=== PATIENT | male | born 1995 | race Caucasian/White ===

== ENCOUNTER 2017-05-06 12:30 | Inpatient (IN) | payer BC ==
[2017-05-06] MEDS ORDERED: LEVSIN/MAALOX/LIDOC VISC PO ONE (12:57)
[2017-05-06] MEDS ORDERED: NORCO 10/325 TAB PO PRN (12:57)
--- NOTE | 2017-05-06 13:00 | DR.H&P ---
H&P - History & Physical for Day of: H&P Date: 05/06/17 - Chief Complaint Chief Complaint: vomiting blood, upper abdominal pain - History of Present Illness History of Present Illness: patient is a 22-year-old white male who was a direct admit from Dr. Valdez's office after presenting this morning with complaints of vomiting blood. Patient appeared to be in distress with complaints of upper abdominal pain and severe nausea and vomiting. Patient has a history of severe esophageal reflux with esophagitis. Patient had an EGD several months ago per Dr. Valdez. Patient has been on PPI therapy twice a day as well as Zantac daily. Patient states he's been very nauseated over last several days. Had episode of vomiting this morning with bright red blood multiple times. Plan to admit patient for further evaluation of upper GI bleed , will administer IV Protonix,, by mouth Carafate. We'll obtain admission labs gastroccult and Hemoccult. - Past Medical History Past Medical History: GERD - Social History Does patient currently use any type of tobacco product: No Have you used tobacco products in the last 12 months: No Type of Tobacco Use: None Does any household member use tobacco: No Alcohol Use: None Drug Use: None - Review of Systems Constitutional: Weakness Eyes: No Symptoms Reported ENT: No Symptoms Reported Respiratory: Cough Cardiovascular: No Symptoms Reported Gastrointestinal: Nausea, Vomiting, Abdominal Pain, Hematochezia Genitourinary: No Symptoms Reported Musculoskeletal: No Symptoms Reported Skin: No Symptoms Reported Neurological: No Symptoms Reported Oriented: Normal Eyes: Normal Ear: Normal Nose: Normal Throat: Red Respiratory: Clear Throughout Cardiovascular: Normal : Normal Auscultation: Bowel Sounds: Increased Tenderness: RUQ, LUQ, Epigastric Skin: Normal Musculoskeletal: Normal Psychiatric: Anxiety Affect: Anxious Speech Pattern: Clear, Appropriate - Assessment/Plan (1) Upper GI bleed Status: Acute Plan: admit, CBC CMP and magnesium and UA on admission, abdomen series, IV Protonix twice a day, by mouth Carafate twice a day, a.m. gallbladder ultrasound nausea and pain control. Obtain last EGD report. (2) Esophagitis Status: Acute (3) Abdominal pain Status: Acute
[2017-05-06 13:32] LABS: BASOPHILS % (AUTO) 0.2 % (0.2-1.0); EOSINOPHILS # (AUTO) 0.1 x10^3/uL (0.0-0.2); HEMATOCRIT 43.6 % (42.0-54.0); HEMOGLOBIN 15.2 g/dL (13.5-18.0); LYMPHOCYTES # (AUTO) 2.9 X10^3/uL (1.3-2.9); LYMPHOCYTES % (AUTO) 46.1 % (21.0-51.0); MEAN CORPUSCULAR HEMOGLOBIN 30.8 pg (27.0-34.0); MEAN CORPUSCULAR HGB CONC 34.8 g/dL (33.0-35.0); MEAN CORPUSCULAR VOLUME 88.4 fL (80.0-100.0); MEAN PLATELET VOLUME 8.3 fL (7.4-11.0); MONOCYTES # (AUTO) 0.6 x10^3/uL (0.3-0.8); MONOCYTES % (AUTO) 9.6 % (0.0-13.0); NEUTROPHILS # (AUTO) 2.8 x10^3/uL (2.2-4.8); NEUTROPHILS % (AUTO) 43.1 % (42.0-75.0); PLATELET COUNT 256 X10^3/uL (150.0-450.0); RED BLOOD COUNT 4.93 X10^6/uL (4.7-6.0); RED CELL DISTRIBUTION WIDTH 12.7 % (11.6-16.5); WHITE BLOOD COUNT 6.4 X10^3/uL (3.6-10.0)
[2017-05-06 13:40] LABS: ALANINE AMINOTRANSFERASE 32 Units/L (12-78); ALBUMIN 4.2 g/dL (3.4-5.0); ALKALINE PHOSPHATASE 89 Units/L (46-116); ASPARTATE AMINO TRANSFERASE 19 Units/L (15-37); BLOOD UREA NITROGEN 12 mg/dL (7-18); CALCIUM 9.2 mg/dL (8.5-10.1); CARBON DIOXIDE 28.4 mmol/L (21-32); CHLORIDE 103 mmol/L (98-107); CREATININE 0.94 mg/dL (0.70-1.30); MAGNESIUM 1.9 mg/dL (1.7-2.9); SODIUM 137 mmol/L (136-145); TOTAL PROTEIN 7.8 g/dL (6.4-8.2); eGFR BLACK RACES > 60 (>60); eGFR NON BLACK RACES > 60 (>60)
[2017-05-06] MEDS: CARAFATE SUSP 1 GM/10 ML PO SCH ×3 (13:56→20:30)
[2017-05-06] MEDS: PROTONIX INJ 40 MG VIAL IVP SCH ×2 (13:56→20:30)
[2017-05-06] MEDS: NS 1000 ML 1,000 ML IV SCH (13:56)
[2017-05-06] MEDS ORDERED: K-LYTE EFFERVESCENT PO PRN (14:50)
[2017-05-06] MEDS ORDERED: MAGNESIUM SULFATE 1 GM/100 mL PREMIX 1 GM/100 ML BAG IV PRN (14:50)
[2017-05-06] MEDS ORDERED: K-RIDER 10 MEQ/NS 100 ML 10 MEQ/100 ML BAG IV PRN (14:50)
[2017-05-06] MEDS ORDERED: MAG-OX TAB PO PRN (14:50)
[2017-05-06 15:37] VITALS: BMI 35.4
--- NOTE | 2017-05-06 16:58 | US ---
Ultrasound gallbladder Indication: Hematemesis Technique: Dynamic grayscale Doppler imaging through the right upper quadrant. Findings: The liver is grossly normal. Portal vein appears patent. Right kidney measures 9.1 cm in le ngth and appears normal. Gallbladder wall thickness of 3-4 mm noted. No stone identified. Common bile duct measures 4 mm. Pancreas is not seen. Impression: No evidence of acute cholecystitis. Reported By:
--- NOTE | 2017-05-06 17:06 | RAD ---
HISTORY: Epigastric pain, nausea, vomiting, diarrhea Study: Acute abdominal series Comparison: None Findings: The lungs are clear without consolidation, effusion or pneumothorax. The cardiac and mediastinal con tours are within normal limits. Flat plate and upright evaluation of the abdomen demonstrates a normal bowel gas pattern. No gross fr ee intraperitoneal air. No pathological soft tissue mass or calcification can be observed. The bony structures are grossly intact. IMPRESSION: 1. No acute cardiopulmonary disease. 2. No evidence of acute abdominal pathology. Reported By:
[2017-05-06 18:34] LABS: HEMATOCRIT 43.7 % (42.0-54.0); HEMOGLOBIN 15.2 g/dL (13.5-18.0)
[2017-05-06] MEDS ORDERED: CARAFATE PO SCH (19:00)
[2017-05-06] MEDS: ZANTAC PO SCH (20:30)
[2017-05-07] MEDS: NS 1000 ML 1,000 ML IV SCH (03:00)
[2017-05-07 05:54] LABS: BILIRUBIN,URINE NEGATIVE (NEGATIVE); BLOOD/HEMOGLOBIN,URINE NEGATIVE (NEGATIVE); GLUCOSE, URINE NEGATIVE (NEGATIVE); KETONES,URINE NEGATIVE (NEGATIVE); LEUKOCYTE ESTERASE ,URINE 1+ (NEGATIVE); NITRITES,URINE NEGATIVE (NEGATIVE); PROTEIN,URINE NEGATIVE (NEGATIVE); UROBILINOGEN,URINE NORMAL (NORMAL)
[2017-05-07 06:09] LABS: APPEARANCE,URINE CLEAR (CLEAR); BACTERIA,URINE NEGATIVE /HPF (NEGATIVE); COLOR,URINE YELLOW (YELLOW); RBC,URINE 0-3 /HPF (NEGATIVE); SQUAMOUS EPITHELIAL CELL,UR RARE /HPF (NEGATIVE)
[2017-05-07 06:18] LABS: ALANINE AMINOTRANSFERASE 26 Units/L (12-78); ALBUMIN 3.5 g/dL (3.4-5.0); ALKALINE PHOSPHATASE 76 Units/L (46-116); ASPARTATE AMINO TRANSFERASE 17 Units/L (15-37); BLOOD UREA NITROGEN 11 mg/dL (7-18); CALCIUM 8.6 mg/dL (8.5-10.1); CHLORIDE 104 mmol/L (98-107); CREATININE 0.93 mg/dL (0.70-1.30); SODIUM 141 mmol/L (136-145); TOTAL PROTEIN 6.6 g/dL (6.4-8.2); eGFR BLACK RACES > 60 (>60); eGFR NON BLACK RACES > 60 (>60)
[2017-05-07] MEDS: CARAFATE SUSP 1 GM/10 ML PO SCH ×2 (06:19→11:59)
[2017-05-07 06:22] LABS: BASOPHILS % (AUTO) 0.3 % (0.2-1.0); EOSINOPHILS # (AUTO) 0.1 x10^3/uL (0.0-0.2); EOSINOPHILS % (AUTO) 1.2 % (0.9-2.9); HEMATOCRIT 41.3 % (42.0-54.0); HEMOGLOBIN 14.2 g/dL (13.5-18.0); LYMPHOCYTES # (AUTO) 2.9 X10^3/uL (1.3-2.9); LYMPHOCYTES % (AUTO) 58.1 % (21.0-51.0); MEAN CORPUSCULAR HEMOGLOBIN 30.8 pg (27.0-34.0); MEAN CORPUSCULAR HGB CONC 34.3 g/dL (33.0-35.0); MEAN CORPUSCULAR VOLUME 89.9 fL (80.0-100.0); MEAN PLATELET VOLUME 8.6 fL (7.4-11.0); MONOCYTES # (AUTO) 0.4 x10^3/uL (0.3-0.8); MONOCYTES % (AUTO) 8.9 % (0.0-13.0); NEUTROPHILS # (AUTO) 1.6 x10^3/uL (2.2-4.8); NEUTROPHILS % (AUTO) 31.5 % (42.0-75.0); PLATELET COUNT 219 X10^3/uL (150.0-450.0); RED CELL DISTRIBUTION WIDTH 13.1 % (11.6-16.5); WHITE BLOOD COUNT 4.9 X10^3/uL (3.6-10.0)
[2017-05-07] MEDS: PROTONIX INJ 40 MG VIAL IVP SCH (08:00)
[2017-05-07] MEDS: ZANTAC PO SCH (08:00)
[2017-05-07 12:44] LABS: BASOPHILS % (AUTO) 0.3 % (0.2-1.0); EOSINOPHILS # (AUTO) 0.1 x10^3/uL (0.0-0.2); EOSINOPHILS % (AUTO) 1.1 % (0.9-2.9); HEMATOCRIT 43.5 % (42.0-54.0); LYMPHOCYTES # (AUTO) 2.4 X10^3/uL (1.3-2.9); LYMPHOCYTES % (AUTO) 44.6 % (21.0-51.0); MEAN CORPUSCULAR HEMOGLOBIN 30.9 pg (27.0-34.0); MEAN CORPUSCULAR HGB CONC 34.6 g/dL (33.0-35.0); MEAN CORPUSCULAR VOLUME 89.2 fL (80.0-100.0); MEAN PLATELET VOLUME 8.2 fL (7.4-11.0); MONOCYTES # (AUTO) 0.5 x10^3/uL (0.3-0.8); MONOCYTES % (AUTO) 8.8 % (0.0-13.0); NEUTROPHILS # (AUTO) 2.4 x10^3/uL (2.2-4.8); NEUTROPHILS % (AUTO) 45.2 % (42.0-75.0); PLATELET COUNT 244 X10^3/uL (150.0-450.0); RED BLOOD COUNT 4.87 X10^6/uL (4.7-6.0); RED CELL DISTRIBUTION WIDTH 12.8 % (11.6-16.5); WHITE BLOOD COUNT 5.4 X10^3/uL (3.6-10.0)
[2017-05-07 12:58] VITALS: BP 106/67
== END 2017-05-07 14:00 | disposition home or self-care (01) | DRG 379 ==
LOC: MED/SURG 12:30 → EDSEX 12:30
PROVIDERS: ADMIT Internal Medicine; ATTEND Internal Medicine
DX: K92.2 Gastrointestinal hemorrhage, unspecified (principal); K20.9 Esophagitis, unspecified; K92.0 Hematemesis; R10.9 Unspecified abdominal pain; K27.9 Peptic ulcer, site unspecified, unspecified as acute or chronic, without hemorrhage or perforation
CPT/HCPCS: 36415; 74022; 76705; 80053; 81001; 83735; 84132; 85014; 85018; 85025; 99238; A4222; C9113